=== PATIENT | male | born 1950 | race Two or more races ===

== ENCOUNTER 2022-10-12 09:27 | Emergency (ER) | payer MEDICARE, OTHER ==
[~2022-10-12] VITALS: Ht 170.2 cm; Wt 77.1 kg
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
--- NOTE | 2022-10-12 09:41 | NUR ---
pt p[ut on monitor and pulse . notified EMD OF BP 204/114.
--- NOTE | 2022-10-12 09:45 | NUR ---
PT SEEN BY AWAITING FOR ORDERS
[2022-10-12] MEDS ORDERED: diphenhydrAMINE HCL 50 MG/ML VIAL ONE (09:52)
[2022-10-12] MEDS ORDERED: FAMOTIDINE/PF INJ 20 MG/2 ML VIAL IV ONE ×2 (09:53→10:00)
[2022-10-12] MEDS ORDERED: LIDOCAINE VISCOUS 2% UD 15 ML UDC ONE (09:53)
[2022-10-12] MEDS ORDERED: MAG HYDROX/AL HYDROX/SIMETH 30 ML UDC ONE (09:53)
[2022-10-12] MEDS ORDERED: hydrALAZINE HCL IV 20 MG VIAL ONE ×2 (09:53→11:59)
[2022-10-12] MEDS ORDERED: KETOROLAC TROMETHAMINE 15 MG/ML VIAL ONE (09:53)
[2022-10-12] MEDS ORDERED: MAG HYDROX/AL HYDROX/SIMETH 30 ML UDC PO ONE (10:00)
[2022-10-12] MEDS ORDERED: IV NS 0.9% 1,000 ML BAG IV ONE (10:00)
[2022-10-12] MEDS ORDERED: hydrALAZINE HCL IV 20 MG VIAL IV ONE ×2 (10:00→12:00)
[2022-10-12] MEDS ORDERED: KETOROLAC TROMETHAMINE INJ 30 MG/ML VIAL IV ONE (10:00)
[2022-10-12] MEDS ORDERED: diphenhydrAMINE HCL 50 MG/ML VIAL IV ONE (10:00)
[2022-10-12] MEDS ORDERED: LIDOCAINE VISCOUS 2% UD 15 ML UDC MM ONE (10:00)
--- NOTE | 2022-10-12 10:05 | NUR ---
ZIPPER CUTTER AT BEDSIDE
[2022-10-12 10:19] LABS: BASOPHILS # (AUTO) 0.1 K/uL (0.0-0.2); BASOPHILS % (AUTO) 0.7 % (0.0-2.0); EOSINOPHILS % (AUTO) 2.7 % (0.0-6.0); HEMATOCRIT 43 % (39-51); HEMOGLOBIN 14.3 g/dL (13.5-17.5); LYMPHOCYTES # (AUTO) 2.4 K/uL (0.8-4.8); MEAN CORPUSCULAR HGB CONC 34 g/dl (31.0-36.0); MEAN CORPUSCULAR VOLUME 90 fL (80-96); MONOCYTES # (AUTO) 0.9 K/uL (0.1-1.30); MONOCYTES % (AUTO) 8.5 % (2.0-12.0); NEUTROPHILS # (AUTO) 6.5 K/uL (1.8-8.9); NEUTROPHILS % (AUTO) 64.1 % (43.0-81.0); PLATELET COUNT (AUTO) 312 K/uL (150-450); RED BLOOD CELL COUNT(AUTO) 4.75 MIL/uL (4.5-6.0); WHITE BLOOD COUNT (AUTO) 10.1 K/uL (4.3-11.0)
[2022-10-12 10:38] LABS: CALCIUM, SERUM 9.2 mg/dL (8.5-10.1); CARBON DIOXIDE 27 mmol/L (21-32); CHLORIDE 106 mmol/L (98-107); CREATININE 0.9 mg/dL (0.6-1.3); GLUCOSE 117 mg/dL (74-106); POTASSIUM 3.8 mmol/L (3.5-5.1); SODIUM SERUM 141 mmol/L (136-145); UREA NITROGEN, BLOOD 13 mg/dL (7-18)
[2022-10-12 10:54] LABS: ALBUMIN 3.6 g/dL (3.4-5.0); ALKALINE PHOSPHATASE 63 U/L (46-116); ASPARTATE AMINOTRANSFERASE 32 U/L (15-37); BILIRUBIN,DIRECT 0.2 mg/dL (0.0-0.2); BILIRUBIN,TOTAL 0.8 mg/dL (0.2-1.0); LIPASE 50 U/L (73-393); TOTAL PROTEIN, SERUM 7.8 g/dL (6.4-8.2)
[2022-10-12 11:07] LABS: ALANINE AMINOTRANSFERASE 35 U/L (12-78)
[2022-10-12] MEDS ORDERED: LOSARTAN POTASSIUM 50 MG TABLET ONE (11:59)
[2022-10-12] MEDS ORDERED: LOSARTAN POTASSIUM 25 MG TABLET PO ONE (12:00)
[2022-10-12] MEDS ORDERED: FAMO-131 PO (12:05)
[2022-10-12] MEDS ORDERED: DIPH25CA83 PO (12:05)
[2022-10-12 12:26] LABS: BILIRUBIN,URINE NEGATIVE (NEGATIVE); COLOR,URINE YELLOW (YELLOW); LEUKOCYTE ESTERASE ,URINE NEGATIVE (NEGATIVE); NITRITE, URINE NEGATIVE (NEGATIVE); PH,URINE 7.5 (5.0-8.0); PROTEIN,URINE NEGATIVE (NEGATIVE); UGLUCOSE NEGATIVE (NEGATIVE); UROBILINOGEN,URINE 0.2 EU/dL (0.2)
--- NOTE | 2022-10-12 12:35 | NUR ---
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 ASK PT TO GET AN UBER OR BUS".
--- NOTE | 2022-10-12 13:00 | NUR ---
CALLED [facility] AND SET UP BLS TRANSPORT ETA 30 MIN
--- NOTE | 2022-10-12 13:33 | NUR ---
ambulance for pt was called
--- NOTE | 2022-10-12 13:48 | NUR ---
Patient discharged to home in stable condition. Written and verbal after care instructions given. Patient verbalizes understanding of instruction.IV removed. Catheter intact and site benign. Pressure and 4x4 applied to site. No bleeding noted.
[2022-10-12 13:50] VITALS: BP 162/117
== END 2022-10-12 13:51 | disposition home or self-care (01) ==
LOC: ER 09:35
DX: R10.13 Epigastric pain (principal); L98.8 Other specified disorders of the skin and subcutaneous tissue; I10 Essential (primary) hypertension; M54.2 Cervicalgia; G89.29 Other chronic pain; F41.9 Anxiety disorder, unspecified; F32.A Depression, unspecified; Z88.0 Allergy status to penicillin
CPT/HCPCS: 99285; 96374; 96375; 71045; 96361; 93005; 96376; 85025; 80048; 83690; 80076; 81003; 36415; 84484; 82962; J1200; J0360 ×2; J3490; J7030; J1885

== ENCOUNTER 2022-10-29 00:12 | Emergency (ER) | payer MEDICARE, OTHER ==
[~2022-10-29] VITALS: Ht 170.2 cm; Wt 78.9 kg
[~2022-10-29 00:12] MED LIST: DIPH25CA83 PO; FAMO-131 PO
--- NOTE | 2022-10-29 00:34 | NUR ---
COVID SWAB DONE AND SENT TO LAB
[2022-10-29 01:40] VITALS: BP 149/88
--- NOTE | 2022-10-29 01:40 | NUR ---
Patient discharged in custody of [employer] in stable condition. Written and verbal after care instructions given. Patient verbalizes understanding of instruction.
== END 2022-10-29 01:43 ==
LOC: ER 00:15
DX: Z02.89 Encounter for other administrative examinations (principal); I10 Essential (primary) hypertension; E11.9 Type 2 diabetes mellitus without complications; G89.29 Other chronic pain; F41.9 Anxiety disorder, unspecified; F32.A Depression, unspecified; Z88.0 Allergy status to penicillin
CPT/HCPCS: 99283; 87426; C9803

== ENCOUNTER 2023-01-15 21:48 | Emergency (ER) | payer MEDICARE, OTHER ==
[~2023-01-15] VITALS: Ht 170.2 cm; Wt 78.9 kg
--- NOTE | 2023-01-15 22:35 | NUR ---
BIBSELF C/O DIZZINESS X4 DAYS, LACK OF APPETITE. PT AAOX4, MOVES ALL EXTREMITIES, LAYING IN BED, AWAITING MD BAGLEY.
[2023-01-15] MEDS ORDERED: MECLIZINE HCL 12.5 MG TABLET PO ONE (23:30)
[2023-01-15] MEDS ORDERED: IV NS 0.9% 1,000 ML BAG IV ONE (23:30)
--- NOTE | 2023-01-15 23:44 | NUR ---
MACHINE STAMPER AT BEDSIDE
[2023-01-15] MEDS ORDERED: MECLIZINE HCL 25 MG TABLET ONE (23:46)
--- NOTE | 2023-01-15 23:54 | NUR ---
20GA TO RIGHT AC ESTABLISHED
[2023-01-15 23:58] LABS: BASOPHILS # (AUTO) 0.1 K/uL (0.0-0.2); BASOPHILS % (AUTO) 0.6 % (0.0-2.0); EOSINOPHILS % (AUTO) 2.2 % (0.0-6.0); HEMATOCRIT 39 % (39-51); LYMPHOCYTES # (AUTO) 2.8 K/uL (0.8-4.8); LYMPHOCYTES % (AUTO) 23.6 % (20.0-44.0); MEAN CORPUSCULAR HGB CONC 33 g/dl (31.0-36.0); MEAN CORPUSCULAR VOLUME 91 fL (80-96); MONOCYTES # (AUTO) 1.7 K/uL (0.1-1.30); NEUTROPHILS # (AUTO) 7.2 K/uL (1.8-8.9); NEUTROPHILS % (AUTO) 59.6 % (43.0-81.0); PLATELET COUNT (AUTO) 375 K/uL (150-450); RED BLOOD CELL COUNT(AUTO) 4.31 MIL/uL (4.5-6.0)
--- NOTE | 2023-01-16 00:01 | NUR ---
PT TAKEN TO CT BY TECH
--- NOTE | 2023-01-16 00:12 | NUR ---
PT BACK FROM CT
[2023-01-16 00:16] LABS: CALCIUM, SERUM 9.7 mg/dL (8.5-10.1); CARBON DIOXIDE 30 mmol/L (21-32); CHLORIDE 104 mmol/L (98-107); CREATININE 1.2 mg/dL (0.6-1.3); GLUCOSE 117 mg/dL (74-106); POTASSIUM 3.4 mmol/L (3.5-5.1); SODIUM SERUM 141 mmol/L (136-145); UREA NITROGEN, BLOOD 20 mg/dL (7-18)
[2023-01-16 00:22] LABS: ALANINE AMINOTRANSFERASE 50 U/L (12-78); ALBUMIN 3.4 g/dL (3.4-5.0); ALKALINE PHOSPHATASE 76 U/L (46-116); ASPARTATE AMINOTRANSFERASE 44 U/L (15-37); BILIRUBIN,DIRECT 0.3 mg/dL (0.0-0.2); TOTAL PROTEIN, SERUM 7.9 g/dL (6.4-8.2)
--- NOTE | 2023-01-16 01:40 | NUR ---
URINE COLLECTED, SENT TO LAB
--- NOTE | 2023-01-16 01:42 | NUR ---
MUSCULOSKELETAL PHYSIOTHERAPIST AT BEDSIDE
[2023-01-16 01:56] LABS: BILIRUBIN,URINE 1+ (NEGATIVE); COLOR,URINE DARK YELLOW (YELLOW); LEUKOCYTE ESTERASE ,URINE NEGATIVE (NEGATIVE); NITRITE, URINE NEGATIVE (NEGATIVE); PROTEIN,URINE 2+ mg/dl (NEGATIVE); UGLUCOSE NEGATIVE (NEGATIVE)
[2023-01-16 01:57] LABS: BACTERIA,URINE Rare /HPF (None Seen); SQUAMOUS EPITHELIAL CELL,UR Few /HPF (None Seen); WBC,URINE 0-2 /HPF (0-3)
--- NOTE | 2023-01-16 06:23 | NUR ---
Patient discharged to home in stable condition. Written and verbal after care instructions given. Patient verbalizes understanding of instruction. IV removed. Catheter intact and site benign. Pressure and 4x4 applied to site. No bleeding noted.
[2023-01-16 06:24] VITALS: BP 159/83; TEMP 98.1; O2SAT 97
== END 2023-01-16 06:25 | disposition home or self-care (01) ==
LOC: ER 21:53
DX: R42 Dizziness and giddiness (principal); I10 Essential (primary) hypertension; E11.9 Type 2 diabetes mellitus without complications; G89.29 Other chronic pain; M54.2 Cervicalgia; F41.9 Anxiety disorder, unspecified; F32.A Depression, unspecified; Z60.2 Problems related to living alone; Z79.899 Other long term (current) drug therapy; Z88.0 Allergy status to penicillin
CPT/HCPCS: 99285; 96360; 70450; 71045; 93005; 85025; 80048; 80076; 81001; 36415 ×2; 84484 ×2; J8597; J7030